=== PATIENT | female | born 1990 | race Caucasian/White ===

== ENCOUNTER 2018-05-29 06:06 | Inpatient (IN) | payer MEDICAID ==
[~2018-05-29] VITALS: Ht 167.6 cm; Wt 59.1 kg
[2018-05-29 06:10] VITALS: Ht 167.6 cm; Wt 59.1 kg
[2018-05-29 06:30] VITALS: BP 100/68
[2018-05-29 06:38] LABS: BASOPHILS 0 % (0-2); EOSINOPHILS 0.1 % (0-7); HEMATOCRIT 37.5 % (36.0-48.0); HEMOGLOBIN 12.4 g/dL (12-16); IMMATURE GRANULOCYTES 0.1 % (0-5); LYMPHOCYTES 14.9 % (15-50); MCHC 33.1 g/dL (31.0-37.0); MCV 90.8 fL (80.0-100.0); MEAN PLATELET VOLUME 11.5 fL (7.4-10.4); MONOCYTES 4.9 % (2-11); PLATELET COUNT 212 10x3/uL (130-400); RBC 4.13 10x6/uL (4.00-5.40); RDW 13.2 % (11.5-14.5); WBC 9.2 10x3/uL (4.8-10.8)
[2018-05-29 06:41] LABS: ALBUMIN 2.9 g/dL (3.4-5.0); ALKALINE PHOSPHATASE 64 U/L (46-116); ALT (SGPT) 17 U/L (10-68); BILIRUBIN - TOTAL 0.15 mg/dL (0.2-1.3); CALC OSMOLALITY 277 mosm/kg (275-300); CARBON DIOXIDE 23.6 mmol/L (21.0-32.0); CHLORIDE - SERUM 105 mmol/L (98-107); CREATININE - SERUM 0.6 mg/dL (0.6-1.3); GLUCOSE 110 mg/dL (74-106); POTASSIUM - SERUM 3.8 mmol/L (3.5-5.1); PROTEIN - SERUM 6.4 g/dL (6.4-8.2); SODIUM 139 mmol/L (136-145); UREA NITROGEN 11 mg/dL (7-18); eGFR NON AFRICAN AMERICAN > 90 mL/min (90-120)
[2018-05-29 06:47] LABS: HCG - QUANTITATIVE (MATERNAL) 265 mIU/mL
[2018-05-29 06:58] VITALS: BP 101/67
[2018-05-29 08:51] LABS: HEMATOCRIT 32.9 % (36.0-48.0); HEMOGLOBIN 10.7 g/dL (12-16)
[2018-05-29] MEDS ORDERED: IBUPROFEN800 MG PO (14:47)
[2018-05-29] MEDS ORDERED: CYTOTEC200 MCG PO (14:48)
== END 2018-05-29 17:00 | disposition home or self-care (01) | DRG 779 ==
LOC: D.ER 06:06 → D.LD 06:50
PROVIDERS: Family Medicine; Obstetrics & Gynecology
DX: O03.9 Complete or unspecified spontaneous abortion without complication (principal)

== ENCOUNTER 2019-12-01 19:32 | Emergency (ER) | payer MEDICAID ==
[~2019-12-01] VITALS: Ht 160 cm; Wt 65.9 kg
[~2019-12-01 19:32] MED LIST: CYTOTEC200 MCG PO; IBUPROFEN800 MG PO
[2019-12-01 19:50] VITALS: Ht 160 cm; Wt 65.9 kg
[2019-12-01 20:24] LABS: BILIRUBIN NEGATIVE (NEGATIVE); GLUCOSE 100 mg/dL (NEGATIVE); KETONE SMALL mg/dL (NEGATIVE); NITRITE NEGATIVE (NEGATIVE); UROBILINOGEN NORMAL (NORMAL)
[2019-12-01 20:28] LABS: WHITE CELLS - URINE 25-50 /hpf (NEGATIVE)
[2019-12-01 20:29] LABS: BACTERIA MANY /hpf (NEGATIVE); EPITHELIAL CELLS 0-5 /hpf (0-5); RED CELLS - URINE 0-5 /hpf (0-5)
[2019-12-01 20:33] LABS: UDS - AMPHET POSITIVE QUAL (NEGATIVE); UDS - BARB NEGATIVE QUAL (NEGATIVE); UDS - BENZO NEGATIVE QUAL (NEGATIVE); UDS - COCAINE NEGATIVE QUAL (NEGATIVE); UDS - OPIATE NEGATIVE QUAL (NEGATIVE); UDS - PCP NEGATIVE QUAL (NEGATIVE); UDS - THC NEGATIVE QUAL (NEGATIVE)
[2019-12-01 20:50] LABS: BASOPHILS 0.2 % (0-2); EOSINOPHILS 0.4 % (0-7); HEMATOCRIT 30.3 % (36.0-48.0); HEMOGLOBIN 9.7 g/dL (12-16); IMMATURE GRANULOCYTES 0.4 % (0-5); LYMPHOCYTES 17.9 % (15-50); MCH 27.6 pg (26.0-34.0); MCV 86.1 fL (80.0-100.0); MEAN PLATELET VOLUME 11.1 fL (7.4-10.4); NEUTROPHILS 74.1 % (40-80); PLATELET COUNT 275 10x3/uL (130-400); RBC 3.52 10x6/uL (4.00-5.40); WBC 9.3 10x3/uL (4.8-10.8)
[2019-12-01 20:56] LABS: CALC OSMOLALITY 266 mosm/kg (275-300); CALCIUM 7.9 mg/dL (8.5-10.1); CHLORIDE - SERUM 105 mmol/L (98-107); CREATININE - SERUM 0.6 mg/dL (0.6-1.3); GLUCOSE 85 mg/dL (74-106); POTASSIUM - SERUM 3.1 mmol/L (3.5-5.1); SODIUM 135 mmol/L (136-145); UREA NITROGEN 8 mg/dL (7-18); eGFR NON AFRICAN AMERICAN > 90 mL/min (90-120)
[2019-12-01 21:04] LABS: ALBUMIN 2.5 g/dL (3.4-5.0); ALKALINE PHOSPHATASE 115 U/L (30-120); ALT (SGPT) 35 U/L (10-68); BILIRUBIN - TOTAL 0.55 mg/dL (0.2-1.3); PROTEIN - SERUM 6.1 g/dL (6.4-8.2)
[2019-12-01 21:05] LABS: TROPONIN-I < 0.017 ng/mL (0.000-0.060)
[2019-12-02 01:12] VITALS: BP 132/78
== END 2019-12-02 01:12 | disposition home or self-care (01) ==
LOC: D.ER 19:32
PROVIDERS: Emergency Medicine
DX: O99.323 Drug use complicating pregnancy, third trimester (principal); Z3A.32 32 weeks gestation of pregnancy; J45.909 Unspecified asthma, uncomplicated